=== PATIENT | male | born 1985 ===

== ENCOUNTER 2022-11-03 07:32 | Emergency (ER) | payer MEDICARE, MEDICAID, SELFPAY ==
--- NOTE | ~2022-11-03 | US_ITS ---
EXAMINATION: US VENOUS ULTRASOUND WITH DOPPLER LOWER EXTREMITY, LEFT CLINICAL INFORMATION: Pain COMPARISON: None available. TECHNIQUE: Ultrasound of the deep veins is performed from the hip to the calf with compression sonography and color and pulse Doppler assessment. Spectral analysis with color-flow imaging is performed. FINDINGS: There is normal venous compression and respiratory variation and augmented flow. The visualized common femoral vein, superficial femoral vein, profunda femoral vein, popliteal vein, and the trifurcation region shows no evidence of deep venous thrombosis. There is no significant popliteal fossa cyst. If the patient's symptoms persist, followup ultrasound in 5 days 7 days might be of value to exclude proximal propagation from a non-visualized calf vein. US/US venous duplex LE LT IMPRESSION: No DVT demonstrated in the left lower extremity.
[2022-11-03 08:02] VITALS: BP 146/88; PULSE 101; RESP 14; TEMP 36.4; O2SAT 96
[2022-11-03 08:07] VITALS: BP 146/88; PULSE 101; RESP 14; TEMP 36.4; O2SAT 96; BMI 35.3
--- NOTE | 2022-11-03 08:22 | ED.EXTPRO ---
HPI - Extremity Problem General Chief complaint: Extremity Problem Stated complaint: Binu lau left leg Time Seen by Provider: 11/03/22 08:12 Source: patient Mode of arrival: ambulatory History of Present Illness HPI Narrative: Patient complaining of cramping of his left calf yesterday. Now with some numbness of his left great toe. No prior history of muscle cramping. No history of thrombo embolic disease or deep venous thrombosis. No family history that he is aware of. No recent injuries. No changes to activity No precipitating causes of which he is aware. No fevers or chills. No back pain. Past history significant for mental health issues on lithium. Diabetes on Januvia and metformin. Hypertension on amlodipine. No known allergies per patient Related Data Allergies Allergy/AdvReac Type Severity Reaction Status Date / Time No Known Allergies Allergy Verified 11/03/22 08:21 Review of Systems Constitutional: Comments: No fevers chills or general malaise Cardiovascular: Comments: No chest pain or palpitations Respiratory: Comments: No dyspnea or cough Gastrointestinal: Comments: No GI symptoms Musculoskeletal: Comments: Leg pain as described in HPI Integumentary/Breasts: Comments: No rash Neurologic: Comments: Left great toe with numbness sensation. No focal weakness PMFSH Social History Social History Advance Directives: No Physical Exam Vital Signs: Vital Signs: Last Vital Signs Temp 97.5 F 11/03/22 08:07 Pulse 101 H 11/03/22 08:07 Resp 14 11/03/22 08:07 BP 146/88 H 11/03/22 08:07 Pulse Ox 96 11/03/22 08:07 O2 Del Method Room Air 11/03/22 08:07 BMI result Body Mass Index 35.3 Const: Other: Awake and alert. No acute distress Resp: Other: Clear and equal bilaterally without wheezes rales or rhonchi Cardio: Other: Regular rate and rhythm without murmurs rubs or gallops GI: Other: Soft nontender nondistended Back/Spine/Pelvis: Other: Full range of motion. No spinal tenderness or paraspinal tenderness Skin: Other: Warm pink and dry without rash Neuro: Other: Ambulatory without difficulty. No focal neuro deficits Extrem: Other: No calf tenderness or obvious swelling. No evidence of diabetic foot ulcers or infection. Medical Decision Making Medical Decision Making [facility] Narrative: Patient with muscle cramps. History significant for taking lithium and diabetes. Thromboembolic cause is possible. Electrolyte abnormality or renal dysfunction in the setting of chronic lithium medication is possible. Will order blood work and ultrasound. Benign muscle cramping is also possible. 09:45. Initial reading on ultrasound shows no evidence of deep venous thrombosis. Electrolytes are normal with the exception of his blood glucose which is 291. Patient states that his blood sugar has been even higher than that, in the 400s. His PCP recently prescribed him a new medication but he has not picked that upper started yet. He is planning on starting it today. His potassium, sodium, other electrolytes are all normal as is his renal function. He is stable for discharge home with instructions to drink plenty of water and muscle cramping instructions. Close monitoring of glucose levels as well Lab Data 11/03/22 08:59 11/03/22 08:59 Labs: Lab Results 11/03/22 11/03/22 11/03/22 Range/Units 08:59 08:59 08:59 WBC 8.0 (4.8-10.8) X10*3/uL RBC 5.23 (4.60-5.80) X10*6/uL Hgb 15.2 (14.0-18.0) g/dl Hct 44.4 (42.0-52.0) % MCV 84.9 (80.0-98.0) fL MCH 29.1 (27.0-33.0) pg MCHC 34.2 (31.0-36.0) g/dl RDW 12.6 (11.0-16.0) % Plt Count 209 (160-400) X10*3/uL MPV 10.6 (9.4-12.4) fL Immature Gran % (Auto) 0.5 H (0.0-0.4) % Neut % (Auto) 70.7 (45-73) % Lymph % (Auto) 20.1 (20-40) % [place] % (Auto) 5.9 (2-11) % Eos % (Auto) 2.4 (0-4) % Baso % (Auto) 0.4 (0-2) % Lymph # (Auto) 1.6 (1.2-4.9) X10*3/uL [place] # (Auto) 0.5 (0.1-1.2) X10*3/uL Eos # (Auto) 0.2 (0.0-0.4) X10*3/uL Baso # (Auto) 0.0 (0.0-0.2) X10*3/uL Abs Immat Gran (auto) 0.04 H (0.00-0.03) X10*3/uL Absolute Neuts (auto) 5.7 (2.0-8.3) x10*3/uL Absolute Nucleated RBC 0.000 (0.0-0.012) X10*3/uL Nucleated RBC % (auto) 0.0 (0.0-0.2) /100WBC Sodium 137 (135-145) mmol/L Potassium 4.2 (3.3-5.1) mmol/L Chloride 105 (96-108) mmol/L Carbon Dioxide 23 (22-29) mmol/L Anion Gap 13 (12-20) BUN 15 (9-16) mg/dL Creatinine 0.96 (0.5-1.4) mg/dL Estim Creat Clear Calc 134.3 Estimated GFR > 60 Random Glucose 291 H (60-115) mg/dL Calcium 9.5 (8.4-10.2) mg/dL Total Bilirubin 0.5 (0.0-1.0) mg/dL AST 42 H (5-37) U/L ALT 87 H (0-40) U/L Alkaline Phosphatase 69 (39-117) U/L Total Protein 6.7 (6.5-8.0) g/dL Albumin 4.3 (3.5-5.0) g/dL [place] 0.54 L (0.60-1.20) mmol/L Discharge Plan Discharge Clinical Impression: Muscle cramps, Diabetes Patient Disposition: Home, Self-Care Instructions: Diabetes and Exercise (ED), Type 2 Diabetes Management for Adults (ED), Leg Cramps (ED) Additional Instructions: Gentle stretching of the left leg. Ambulate as tolerated Drink plenty of water Monitor your blood sugar at least twice daily Start her new diabetes medicine prescribed by your PCP as discussed.
[2022-11-03 09:05] LABS: MANUAL DIFF FLAG NO
[2022-11-03 09:12] LABS: Basophils Percent Auto 0.4 % (0-2); Eosinophils Absolute Auto 0.2 X10*3/uL (0.0-0.4); Eosinophils Percent Auto 2.4 % (0-4); Hematocrit 44.4 % (42.0-52.0); Hemoglobin 15.2 g/dl (14.0-18.0); Imm Gran Abs Auto 0.04 X10*3/uL (0.00-0.03); Imm Gran Pct Auto 0.5 % (0.0-0.4); Lymphocytes Absolute Auto 1.6 X10*3/uL (1.2-4.9); Lymphocytes Percent Auto 20.1 % (20-40); Mean Corpuscular HGB Conc 34.2 g/dl (31.0-36.0); Mean Corpuscular Hemoglobin 29.1 pg (27.0-33.0); Mean Corpuscular Volume 84.9 fL (80.0-98.0); Mean Platelet Volume 10.6 fL (9.4-12.4); Monocytes Absolute Auto 0.5 X10*3/uL (0.1-1.2); Monocytes Percent Auto 5.9 % (2-11); Neutrophils Absolute Auto 5.7 x10*3/uL (2.0-8.3); Neutrophils Percent Auto 70.7 % (45-73); Platelet Count 209 X10*3/uL (160-400); Red Blood Count 5.23 X10*6/uL (4.60-5.80); Red Cell Distribution Width 12.6 % (11.0-16.0)
[2022-11-03 09:31] LABS: Lithium 0.54 mmol/L (0.60-1.20)
[2022-11-03 09:38] LABS: Alanine Aminotransferase 87 U/L (0-40); Albumin Level 4.3 g/dL (3.5-5.0); Alkaline Phosphatase 69 U/L (39-117); Anion Gap 13 (12-20); Aspartate Amino Transferase 42 U/L (5-37); Bilirubin Total 0.5 mg/dL (0.0-1.0); Blood Urea Nitrogen 15 mg/dL (9-16); Calcium 9.5 mg/dL (8.4-10.2); Carbon Dioxide 23 mmol/L (22-29); Chloride 105 mmol/L (96-108); Creatinine Clr Calc Pharmacy 134.3; Estimated Glomerular Filt Rate > 60; Glucose Random 291 mg/dL (60-115); Potassium 4.2 mmol/L (3.3-5.1); Sodium 137 mmol/L (135-145); Total Protein 6.7 g/dL (6.5-8.0)
== END 2022-11-03 10:14 | disposition home or self-care (01) ==
PROVIDERS: Emergency Provider Emergency Medicine; PCP General Practice
DX: R25.2 Cramp and spasm (principal); R60.0 Localized edema; R20.0 Anesthesia of skin; E11.9 Type 2 diabetes mellitus without complications; Z79.899 Other long term (current) drug therapy
CPT/HCPCS: 36415; 80053; 80178; 85025; 93971; 99282; 99284

== ENCOUNTER 2023-01-18 09:16 | Emergency (ER) | payer MEDICARE, MEDICAID, SELFPAY ==
[2023-01-18 09:31] VITALS: BP 146/86; PULSE 88; RESP 16; TEMP 36.5; O2SAT 99; BMI 34.5
--- NOTE | 2023-01-18 09:48 | ED.EYEPROB ---
HPI - Eye Problem General Chief complaint: Eye Problems Stated complaint: ? R Eye Infection Time Seen by Provider: 01/18/23 09:30 Source: patient Mode of arrival: ambulatory Limitations: no limitations History of Present Illness HPI Narrative: 37 yo male presents to the ER for evaluation of non-traumatic, painless right upper eyelid swelling for the last couple of days. He states he noticed a few days ago that his upper eyelid on the right side was slightly swollen. He denies any injury or trauma. No vision changes. No discharge or tenderness of the area. No pain with eye movement. chief complaint: eye redness Onset (ago): day(s) Onset description: gradual Duration: constant Location: right eye Eye Symptoms: redness Place: home Mechanism: none Severity: mild Associated symptoms: none Treatments Prior to Arrival: none Related Data Allergies Allergy/AdvReac Type Severity Reaction Status Date / Time No Known Allergies Allergy Verified 11/03/22 08:21 Review of Systems Review of Systems: Yes all other systems are reviewed and are negative [facility] Social History Social History Advance Directives: No Physical Exam Vital Signs: Vital Signs: Last Vital Signs Temp 97.7 F 01/18/23 09:31 Pulse 88 01/18/23 09:31 Resp 16 01/18/23 09:31 BP 146/86 H 01/18/23 09:31 Pulse Ox 99 01/18/23 09:31 O2 Del Method Room Air 01/18/23 09:31 BMI result Body Mass Index 34.5 Appearance: Alert. Oriented X3. No acute distress. HEENT: Right upper eyelid with trace swelling, mild erythema, generalized. eyelid is nontender with no focal area of swelling. No palpable 40 om internally or externally. No scleral or conjunctival injection. Extraocular movements are intact and pupils are equal round reactive. No periorbital swelling or erythema CVS: Normal heart rate and rhythm. Pulses normal. Respiratory: No respiratory distress. Skin: Skin warm and dry. Normal skin color. Normal skin turgor. No rashes. Extremities: normal inspection x4 Neuro: Oriented X 3. No motor deficit. No sensory deficit. Medical Decision Making Medical Decision Making [facility] Narrative: 37-year-old male presenting to the ER for evaluation of nontraumatic and painless right upper eyelid swelling for the last couple of days. On examination he has minimal swelling of the right eyelid. No palpable tenderness or visible 40 om appreciated. Could be early formation of a stye. We discussed using warm compresses and watchful waiting. He is stable for discharge home and return precautions were discussed. Differential Diagnosis Differential Diagnoses: The differential diagnosis associated with the presentation includes external hordeolum, internal hordeolum, superficial skin irritation, early periorbital cellulitis less likely External Record Review External record reviewed: Prior outpatient labs Prescription Management I considered prescription management with: Antibiotic Consider topical antibiotic cover this is not indicated at this time Critical Care Time Critical Care Time Critical Care Time: No Discharge Plan Discharge Clinical Impression: Swelling of right upper eyelid Instructions: Steven (ED) Additional Instructions: the swelling of your eyelid may be due to a small stye forming. treatment is using warm compresses several times per day if you develop discharge from the eye, unable to open the eye due to swelling, swelling of tissues around the eye or any other concerning symptom call your doctor or come back to the ER for further evaluation Interventions: ED Discharge Assessment Last Done: 01/18/23 09:42
== END 2023-01-18 09:42 | disposition home or self-care (01) ==
PROVIDERS: Emergency Provider Emergency Medicine Emergency Medical Services; PCP General Practice
DX: H02.841 Edema of right upper eyelid (principal)
CPT/HCPCS: 99282

== ENCOUNTER 2023-02-22 13:56 | Outpatient (REF) | payer MEDICARE, MEDICAID, SELFPAY ==
[2023-02-22 16:07] LABS: MANUAL DIFF FLAG NO
[2023-02-22 16:18] LABS: Basophils Percent Auto 0.5 % (0-2); Eosinophils Absolute Auto 0.2 X10*3/uL (0.0-0.4); Eosinophils Percent Auto 2.5 % (0-4); Hematocrit 44.8 % (42.0-52.0); Hemoglobin 15.2 g/dl (14.0-18.0); Imm Gran Abs Auto 0.03 X10*3/uL (0.00-0.03); Imm Gran Pct Auto 0.4 % (0.0-0.4); Lymphocytes Absolute Auto 1.8 X10*3/uL (1.2-4.9); Lymphocytes Percent Auto 21.7 % (20-40); Mean Corpuscular HGB Conc 33.9 g/dl (31.0-36.0); Mean Corpuscular Hemoglobin 28.4 pg (27.0-33.0); Mean Corpuscular Volume 83.6 fL (80.0-98.0); Mean Platelet Volume 11.4 fL (9.4-12.4); Monocytes Absolute Auto 0.5 X10*3/uL (0.1-1.2); Monocytes Percent Auto 5.4 % (2-11); Neutrophils Absolute Auto 5.8 x10*3/uL (2.0-8.3); Neutrophils Percent Auto 69.5 % (45-73); Platelet Count 236 X10*3/uL (160-400); Red Blood Count 5.36 X10*6/uL (4.60-5.80); Red Cell Distribution Width 12.2 % (11.0-16.0); White Blood Count 8.3 X10*3/uL (4.8-10.8)
== END 2023-02-22 13:57 | disposition home or self-care (01) ==
LOC: HO.HHCL 13:56
PROVIDERS: Visit Provider General Practice
DX: R00.2 Palpitations (principal)
CPT/HCPCS: 36415; 84443; 85025